=== PATIENT | male | born 1935 | race Caucasian/White ===

== ENCOUNTER 2025-08-03 21:22 | Inpatient (IN) | payer MEDICARE, SELFPAY ==
[2025-08-03 21:59] LABS: #Basophils 0.03 10x3/uL (0.0-0.2); #Eosinophils Less than 0.03 10x3/uL (0.0-0.7); #Monocytes 1.17 10x3/uL (0.11-0.59); #Neutrophils 10.41 10x3/uL (1.40-6.50); %Basophils 0.2 % (0.0-1.0); %Eosinophils 0.0 % (0.0-10.0); %Lymphocytes 5.3 % (21.0-51.0); %Monocytes 9.5 % (0.0-10.0); %Neutrophils 84.3 % (42.0-75.0); Hematocrit 45.8 % (42.0-52.0); Hemoglobin 15.6 g/dL (14.0-18.0); Mean Corpuscular Hemoglobin 32.1 pg (27.0-31.0); Mean Corpuscular Volume 94.2 fL (78.0-98.0); Platelet Count 289 10x3/uL (130-400); Red Blood Cell (RBC) Count 4.86 mill/uL (4.70-6.10); White Blood Cell (WBC) Count 12.36 10x3/uL (4.8-10.8)
[2025-08-03 22:17] LABS: BUN (Urea Nitrogen) 130 mg/dL (8.4-25.7)
[2025-08-03] MEDS ORDERED: Acetaminophen 325 MG TAB ONE (22:17)
[2025-08-03 22:25] LABS: ALT (SGPT) 85 U/L (Less than 45); AST (SGOT) 80 U/L (11-34); Albumin 3.1 g/dL (3.1-4.5); Alkaline Phosphatase 84 U/L (40-110); Anion Gap 20 mmol/L (10-20); Bilirubin, Total 1.2 mg/dL (0.3-1.2); Calc. Creatinine Clearance 0 mL/min (70-130); Calcium 8.9 mg/dL (7.8-10.44); Carbon Dioxide 21 mmol/L (23-31); Chloride 123 mmol/L (98-107); Globulin 3.6 g/dL (2.4-3.5); Glucose 163 mg/dL (83-110); Potassium 4.1 mmol/L (3.5-5.1); Sodium 160 mmol/L (136-145)
[2025-08-03 22:48] LABS: CAUTI Indications for Culture Dysuria,urgency,freq; Glucose, Urine (Dipstick) Normal (Negative); Leukocyte Negative Leu/uL (Negative); Protein, Urine (Dipstick) 30 mg/dL (Neg-Trace); RBC/HPF Greater than 50 HPF (0-3); Specific Gravity, Urine 1.022 (1.002-1.036)
[2025-08-03] MEDS ORDERED: Acetaminophen 325 MG TAB PO PRN (22:55)
[2025-08-03] MEDS ORDERED: Ondansetron PF 4 MG/2 ML Vial IVP PRN (22:55)
[2025-08-03 23:07] LABS: Bacteria/HPF Rare-Few HPF (None Seen); Urine Culture Reflex No No
[2025-08-04 01:05] VITALS: BMI 25.7
[2025-08-04 01:08] LABS: Actual Bicarbonate (HCO3v) 17.1 mEq/L (22-28); Base Excess -7.7 mEq/L (-2.0 to +3.0); Calcium, Ionized (venous) 1.07 mmol/L (1.16-1.32); Chloride (VBG) 122 mmol/L (98-106); Hematocrit-VBG 45 % (42.0-52.0); Hemoglobin (Hb) 15.2 g/dL (12.6-17.4); Potassium (VBG) 4.08 mmol/L (3.70-5.30)
[2025-08-04 01:09] LABS: Sodium 159 mmol/L (133-146)
[2025-08-04] MEDS ORDERED: Vancomycin Dose by Levels Sliding Scale (Wt 71-99) FS SCH (01:30)
[2025-08-04] MEDS: VANCOMYCIN 1.75 GM/350 ML Premix BAG IVPB SCH (01:59)
[2025-08-04 08:33] LABS: #Basophils Less than 0.03 10x3/uL (0.0-0.2); #Eosinophils Less than 0.03 10x3/uL (0.0-0.7); #Monocytes 1.25 10x3/uL (0.11-0.59); #Neutrophils 9.25 10x3/uL (1.40-6.50); %Basophils 0.2 % (0.0-1.0); %Eosinophils 0.0 % (0.0-10.0); %Lymphocytes 7.2 % (21.0-51.0); %Monocytes 11.0 % (0.0-10.0); %Neutrophils 81.1 % (42.0-75.0); Hematocrit 40.3 % (42.0-52.0); Hemoglobin 13.0 g/dL (14.0-18.0); Mean Corpuscular Hemoglobin 31.9 pg (27.0-31.0); Mean Corpuscular Volume 99.0 fL (78.0-98.0); Platelet Count 235 10x3/uL (130-400); Red Blood Cell (RBC) Count 4.07 mill/uL (4.70-6.10); White Blood Cell (WBC) Count 11.40 10x3/uL (4.8-10.8)
[2025-08-04] MEDS ORDERED: Vancomycin 1.5 GRAM/300 ML BAG IVPB SCH (09:00)
[2025-08-04 09:01] LABS: BUN (Urea Nitrogen) 142 mg/dL (8.4-25.7)
[2025-08-04 09:23] LABS: ALT (SGPT) 69 U/L (Less than 45); AST (SGOT) 68 U/L (11-34); Albumin 2.6 g/dL (3.1-4.5); Alkaline Phosphatase 68 U/L (40-110); Anion Gap 21 mmol/L (10-20); Bilirubin, Total 1.0 mg/dL (0.3-1.2); Calc. Creatinine Clearance 15 mL/min (70-130); Calcium 8.2 mg/dL (7.8-10.44); Carbon Dioxide 19 mmol/L (23-31); Chloride 125 mmol/L (98-107); Globulin 3.1 g/dL (2.4-3.5); Glucose 166 mg/dL (83-110); Potassium 3.9 mmol/L (3.5-5.1); Sodium 161 mmol/L (136-145)
[2025-08-04] MEDS: Aspirin Chewable 81 MG TAB PO SCH (09:27)
[2025-08-04] MEDS: Mupirocin 1 GM TUBE NASAL DECOLONIZATION TP SCH (11:30)
[2025-08-04 13:47] LABS: BUN (Urea Nitrogen) 142 mg/dL (8.4-25.7)
[2025-08-04 13:50] LABS: Anion Gap 19 mmol/L (10-20); Calc. Creatinine Clearance 16 mL/min (70-130); Calcium 8.0 mg/dL (7.8-10.44); Carbon Dioxide 20 mmol/L (23-31); Chloride 125 mmol/L (98-107); Glucose 222 mg/dL (83-110); Potassium 3.8 mmol/L (3.5-5.1); Sodium 160 mmol/L (136-145)
[2025-08-04] MEDS: Heparin 5,000 UNITS/ML VIAL SC SCH (15:00)
[2025-08-04] MEDS: Mupirocin 1 GM TUBE NASAL DECOLOIZATION TP SCH (20:50)
[2025-08-05 02:51] LABS: #Basophils Less than 0.03 10x3/uL (0.0-0.2); #Eosinophils 0.04 10x3/uL (0.0-0.7); #Monocytes 0.90 10x3/uL (0.11-0.59); #Neutrophils 6.97 10x3/uL (1.40-6.50); %Basophils 0.1 % (0.0-1.0); %Eosinophils 0.4 % (0.0-10.0); %Lymphocytes 11.7 % (21.0-51.0); %Monocytes 10.0 % (0.0-10.0); %Neutrophils 77.2 % (42.0-75.0); Hematocrit 35.9 % (42.0-52.0); Hemoglobin 11.8 g/dL (14.0-18.0); Mean Corpuscular Hemoglobin 31.7 pg (27.0-31.0); Mean Corpuscular Volume 96.5 fL (78.0-98.0); Platelet Count 214 10x3/uL (130-400); Red Blood Cell (RBC) Count 3.72 mill/uL (4.70-6.10); White Blood Cell (WBC) Count 9.03 10x3/uL (4.8-10.8)
[2025-08-05 03:03] LABS: Vancomycin, Trough 15.1 ug/mL
[2025-08-05 03:49] LABS: ALT (SGPT) 61 U/L (Less than 45); AST (SGOT) 54 U/L (11-34); Albumin 2.3 g/dL (3.1-4.5); Alkaline Phosphatase 63 U/L (40-110); Anion Gap 17 mmol/L (10-20); Bilirubin, Total 0.7 mg/dL (0.3-1.2); Calc. Creatinine Clearance 17 mL/min (70-130); Calcium 8.0 mg/dL (7.8-10.44); Carbon Dioxide 18 mmol/L (23-31); Chloride 125 mmol/L (98-107); Globulin 2.9 g/dL (2.4-3.5); Glucose 260 mg/dL (83-110); Potassium 3.9 mmol/L (3.5-5.1); Sodium 156 mmol/L (136-145)
[2025-08-05 03:53] LABS: BUN (Urea Nitrogen) 137 mg/dL (8.4-25.7)
[2025-08-05] MEDS: Albumin 25% 25 GM (100 mL) BOT IVPB SCH (04:29)
[2025-08-05] MEDS: FLU (Fluad Triv) 25-26 (65UP)PF 45 MCG/0.5 ML Syringe IM ONE (09:42)
[2025-08-06 04:25] LABS: #Basophils Less than 0.03 10x3/uL (0.0-0.2); #Eosinophils 0.31 10x3/uL (0.0-0.7); #Monocytes 0.77 10x3/uL (0.11-0.59); #Neutrophils 5.07 10x3/uL (1.40-6.50); %Basophils 0.1 % (0.0-1.0); %Eosinophils 4.1 % (0.0-10.0); %Lymphocytes 18.6 % (21.0-51.0); %Monocytes 10.1 % (0.0-10.0); %Neutrophils 66.3 % (42.0-75.0); Hematocrit 33.3 % (42.0-52.0); Hemoglobin 10.7 g/dL (14.0-18.0); Mean Corpuscular Hemoglobin 31.8 pg (27.0-31.0); Mean Corpuscular Volume 98.8 fL (78.0-98.0); Platelet Count 181 10x3/uL (130-400); Red Blood Cell (RBC) Count 3.37 mill/uL (4.70-6.10); White Blood Cell (WBC) Count 7.64 10x3/uL (4.8-10.8)
[2025-08-06 04:56] LABS: Vancomycin, Trough 13.0 ug/mL
[2025-08-06 05:05] LABS: Anion Gap 13 mmol/L (10-20); BUN (Urea Nitrogen) 105 mg/dL (8.4-25.7); CK (CPK) 351 U/L (30-200); Calc. Creatinine Clearance 23 mL/min (70-130); Calcium 7.7 mg/dL (7.8-10.44); Carbon Dioxide 21 mmol/L (23-31); Chloride 122 mmol/L (98-107); Glucose 252 mg/dL (83-110); Potassium 3.8 mmol/L (3.5-5.1); Sodium 152 mmol/L (136-145)
[2025-08-06] MEDS: Guaifenesin DM 100-10/5 ML UDCUP PO PRN (11:05)
[2025-08-06] MEDS: Albumin 25% 25 GM (100 mL) BOT IVPB SCH (13:44)
[2025-08-06] MEDS: SYSTANE 0.3-0.4% EYE DROPS (30 ML) EA EYE SCH ×2 (17:17→21:17)
[2025-08-07] MEDS: Nystatin Powder 15 GM BOT TOP PRN (05:00)
[2025-08-07 05:19] LABS: #Basophils Less than 0.03 10x3/uL (0.0-0.2); #Eosinophils 0.44 10x3/uL (0.0-0.7); #Monocytes 0.55 10x3/uL (0.11-0.59); #Neutrophils 4.48 10x3/uL (1.40-6.50); %Basophils 0.1 % (0.0-1.0); %Eosinophils 6.5 % (0.0-10.0); %Lymphocytes 18.1 % (21.0-51.0); %Monocytes 8.1 % (0.0-10.0); %Neutrophils 66.2 % (42.0-75.0); Hematocrit 28.8 % (42.0-52.0); Hemoglobin 9.4 g/dL (14.0-18.0); Mean Corpuscular Hemoglobin 32.0 pg (27.0-31.0); Mean Corpuscular Volume 98.0 fL (78.0-98.0); Platelet Count 161 10x3/uL (130-400); Red Blood Cell (RBC) Count 2.94 mill/uL (4.70-6.10); White Blood Cell (WBC) Count 6.78 10x3/uL (4.8-10.8)
[2025-08-07 05:30] LABS: Anion Gap 11 mmol/L (10-20); BUN (Urea Nitrogen) 74 mg/dL (8.4-25.7); Calc. Creatinine Clearance 27 mL/min (70-130); Calcium 7.5 mg/dL (7.8-10.44); Carbon Dioxide 20 mmol/L (23-31); Chloride 120 mmol/L (98-107); Glucose 178 mg/dL (83-110); Potassium 3.7 mmol/L (3.5-5.1); Sodium 147 mmol/L (136-145)
[2025-08-07] MEDS ORDERED: Glucagon 1 MG/ML KIT IM PRN (15:11)
[2025-08-07] MEDS ORDERED: Dextrose 50% Abboject 50 ML SYRINGE SLOW IVP PRN (15:11)
[2025-08-08 05:54] LABS: #Basophils Less than 0.03 10x3/uL (0.0-0.2); #Eosinophils 0.43 10x3/uL (0.0-0.7); #Monocytes 0.55 10x3/uL (0.11-0.59); #Neutrophils 4.84 10x3/uL (1.40-6.50); %Basophils 0.3 % (0.0-1.0); %Eosinophils 5.9 % (0.0-10.0); %Lymphocytes 18.6 % (21.0-51.0); %Monocytes 7.5 % (0.0-10.0); %Neutrophils 66.2 % (42.0-75.0); Hematocrit 31.6 % (42.0-52.0); Hemoglobin 10.5 g/dL (14.0-18.0); Mean Corpuscular Hemoglobin 32.1 pg (27.0-31.0); Mean Corpuscular Volume 96.6 fL (78.0-98.0); Platelet Count 165 10x3/uL (130-400); Red Blood Cell (RBC) Count 3.27 mill/uL (4.70-6.10); White Blood Cell (WBC) Count 7.31 10x3/uL (4.8-10.8)
[2025-08-08 06:10] LABS: Anion Gap 13 mmol/L (10-20); BUN (Urea Nitrogen) 52 mg/dL (8.4-25.7); Calc. Creatinine Clearance 34 mL/min (70-130); Calcium 7.4 mg/dL (7.8-10.44); Carbon Dioxide 18 mmol/L (23-31); Chloride 118 mmol/L (98-107); Glucose 178 mg/dL (83-110); Potassium 3.5 mmol/L (3.5-5.1); Sodium 145 mmol/L (136-145)
[2025-08-09 04:40] LABS: #Basophils Less than 0.03 10x3/uL (0.0-0.2); #Eosinophils 0.36 10x3/uL (0.0-0.7); #Monocytes 0.62 10x3/uL (0.11-0.59); #Neutrophils 5.03 10x3/uL (1.40-6.50); %Basophils 0.3 % (0.0-1.0); %Eosinophils 4.9 % (0.0-10.0); %Lymphocytes 16.9 % (21.0-51.0); %Monocytes 8.4 % (0.0-10.0); %Neutrophils 67.7 % (42.0-75.0); Hematocrit 30.7 % (42.0-52.0); Hemoglobin 10.2 g/dL (14.0-18.0); Mean Corpuscular Hemoglobin 31.7 pg (27.0-31.0); Mean Corpuscular Volume 95.3 fL (78.0-98.0); Platelet Count 164 10x3/uL (130-400); Red Blood Cell (RBC) Count 3.22 mill/uL (4.70-6.10); White Blood Cell (WBC) Count 7.41 10x3/uL (4.8-10.8)
[2025-08-09 04:56] LABS: Anion Gap 9 mmol/L (10-20); BUN (Urea Nitrogen) 40 mg/dL (8.4-25.7); Calc. Creatinine Clearance 41 mL/min (70-130); Calcium 7.4 mg/dL (7.8-10.44); Carbon Dioxide 20 mmol/L (23-31); Chloride 118 mmol/L (98-107); Glucose 192 mg/dL (83-110); Potassium 3.5 mmol/L (3.5-5.1); Sodium 143 mmol/L (136-145)
[2025-08-09 14:47] VITALS: BMI 30.9
[2025-08-10 04:25] LABS: #Basophils Less than 0.03 10x3/uL (0.0-0.2); #Eosinophils 0.30 10x3/uL (0.0-0.7); #Monocytes 0.68 10x3/uL (0.11-0.59); #Neutrophils 5.64 10x3/uL (1.40-6.50); %Basophils 0.1 % (0.0-1.0); %Eosinophils 3.7 % (0.0-10.0); %Lymphocytes 16.4 % (21.0-51.0); %Monocytes 8.5 % (0.0-10.0); %Neutrophils 70.2 % (42.0-75.0); Hematocrit 28.2 % (42.0-52.0); Hemoglobin 9.4 g/dL (14.0-18.0); Mean Corpuscular Hemoglobin 32.1 pg (27.0-31.0); Mean Corpuscular Volume 96.2 fL (78.0-98.0); Platelet Count 153 10x3/uL (130-400); Red Blood Cell (RBC) Count 2.93 mill/uL (4.70-6.10); White Blood Cell (WBC) Count 8.04 10x3/uL (4.8-10.8)
[2025-08-10 04:45] LABS: Anion Gap 4 mmol/L (10-20); BUN (Urea Nitrogen) 37 mg/dL (8.4-25.7); Calc. Creatinine Clearance 43 mL/min (70-130); Calcium 7.5 mg/dL (7.8-10.44); Carbon Dioxide 20 mmol/L (23-31); Chloride 119 mmol/L (98-107); Glucose 123 mg/dL (83-110); Potassium 3.5 mmol/L (3.5-5.1); Sodium 139 mmol/L (136-145)
[2025-08-10] MEDS: Calcium Carbonate 500 MG ChewTAB PO PRN (05:49)
[2025-08-10 16:07] VITALS: BP 117/57; TEMP 97.6
== END 2025-08-10 20:00 | DRG 871 ==
LOC: ERS 21:22 → CCU 23:12 → IMCU/EMU 08-04 17:14 → 2NO 08-05 09:13
PROVIDERS: ADMIT Student in an Organized Health Care Education/Training Program; ATTEND Internal Medicine
DX: A41.9 Sepsis, unspecified organism (principal); G93.41 Metabolic encephalopathy; I21.A1 Myocardial infarction type 2; N17.9 Acute kidney failure, unspecified; M62.82 Rhabdomyolysis; E87.20 Acidosis, unspecified; E87.0 Hyperosmolality and hypernatremia; R73.9 Hyperglycemia, unspecified; R03.0 Elevated blood-pressure reading, without diagnosis of hypertension; W19.XXXA Unspecified fall, initial encounter; Z88.0 Allergy status to penicillin; Z79.899 Other long term (current) drug therapy; E86.0 Dehydration; L89.899 Pressure ulcer of other site, unspecified stage
CPT/HCPCS: 36415; 36416; 70450; 70551; 71045; 72170; 74018; 74230; 76770; 80048; 80053; 80202; 81001; 82550; 82805; 83036; 83605; 84439; 84443; 84484; 85025; 87040; 87077; 87086; 87149; 93005; 93306; 94760; 96365; 97139; A4217; J0295; J1644; J1815; J2272; J2543; J3373; J3375; J7042; J7050; J7070; P9047